=== PATIENT | male | born 1945 | race Caucasian/White ===

== ENCOUNTER 2020-10-21 11:11 | Emergency (ER) | payer MEDICARE, OTHER ==
[2020-10-21 11:44] LABS: BASOPHIL 0.5 % (0-2); EOSINOPHIL 7.3 % (0-7); HCT 40.7 % (42.0-52.0); HGB 13.4 g/dl (13.2-18.0); LYMPHOCYTE 19.7 % (15-48); MCH 29.2 pg (25.0-31.0); MCHC 32.9 g/dL (32.0-36.0); MCV 88.7 fL (78.0-100.0); MONOCYTE 8.2 % (0-12); MPV 9.8 fL (6.0-9.5); NEUTROPHIL 63.5 % (41-80); NRBC 0; PLT 145 K/uL (150-400); RBC 4.59 M/uL (4.70-6.00); RDW 14.5 % (11.5-14.0); WBC 6.6 K/uL (4.0-10.5)
[2020-10-21 11:58] LABS: ALBUMIN 3.6 g/dL (3.4-5.0); BILIRUBIN - TOTAL 0.7 mg/dL (0.2-1.0); BUN/CREAT RATIO (CALC) 16.7 RATIO; CREATININE 1.2 mg/dL (0.67-1.17); GLOBULIN (CALCULATION) 3.1 g/dL; POTASSIUM 4.7 mmol/L (3.5-5.1); TOTAL PROTEIN 6.7 g/dL (6.4-8.2)
[2020-10-21 12:02] LABS: INR 1.08 (0.9-1.2); PROTHROMBIN TIME 13.3 SECONDS (11.4-13.6); PTT 45.9 SECONDS (22.2-34.7)
== END 2020-10-21 12:54 | disposition home or self-care (01) ==
LOC: FER 11:11
PROVIDERS: Emergency Medicine
DX: R07.89 Other chest pain (principal); I25.10 Atherosclerotic heart disease of native coronary artery without angina pectoris; Z95.1 Presence of aortocoronary bypass graft; Z79.82 Long term (current) use of aspirin; Z79.899 Other long term (current) drug therapy
CPT/HCPCS: 36415; 71045; 80053; 84484; 85025; 85610; 85730; 93005